=== PATIENT | male | born 1975 | race Caucasian/White ===

== ENCOUNTER 2022-12-27 11:22 | Emergency (ER) | payer MEDICAID ==
[~2022-12-27] VITALS: Ht 165.1 cm; Wt 73.0 kg
[2022-12-27 11:40] VITALS: BP 141/73; PULSE 81; RESP 18; TEMP 98; O2SAT 98
[2022-12-27] MEDS ORDERED: IBUP-2213 PO (14:06)
[2022-12-27 14:28] VITALS: BP 141/73; PULSE 81; RESP 18; TEMP 98; O2SAT 98
== END 2022-12-27 14:29 | disposition home or self-care (01) ==
LOC: MED 11:22
DX: R22.42 Localized swelling, mass and lump, left lower limb (principal); Z79.1 Long term (current) use of non-steroidal anti-inflammatories (NSAID)
CPT/HCPCS: 73562; 99283